=== PATIENT | male | born 1960 | race Hispanic/Latino ===

== ENCOUNTER → 2018-01-25 | Outpatient (CLI) | payer OTHER | LOC: M RAD 08:57 | DX: K40.90 Unilateral inguinal hernia, without obstruction or gangrene, not specified as recurrent (principal) ==

== ENCOUNTER → 2018-02-26 | Outpatient (CLI) | payer OTHER ==
[2018-02-26 12:19] LABS: HEMATOCRIT 42.9 % (42.0-52.0); HEMOGLOBIN 15.4 g/dl (13.5-17.5); MEAN CORPUSCULAR HEMOGLOBIN 31.8 pg (27.0-33.0); MEAN CORPUSCULAR HGB CONC 35.9 g/dl (32.0-36.5); MEAN CORPUSCULAR VOLUME 88.6 fl (80.0-96.0); PLATELET COUNT, AUTOMATED 191 10^3/uL (150-450); RED BLOOD COUNT 4.84 10^6/uL (4.30-6.10); RED CELL DISTRIBUTION WIDTH 12.1 % (11.5-14.5); WHITE BLOOD COUNT 4.5 10^3/uL (4.0-10.0)
== END ==
LOC: M LAB 11:49
DX: Z01.818 Encounter for other preprocedural examination (principal); Z87.09 Personal history of other diseases of the respiratory system
CPT/HCPCS: 93005

== ENCOUNTER 2018-03-01 05:46 | Day surgery (SDC) | payer OTHER ==
[2018-03-01] MEDS ORDERED: LR 1,000 ML IV ×4 (06:00→09:30)
[2018-03-01] MEDS: BUPIVACAINE/EPIN 0.25% 30 ML VIAL As Ordered ×2 (07:17)
[2018-03-01] MEDS ORDERED: dexameTHASONE 4 MG/ML 1ML VIAL (J1100) As Ordered ×4 (07:19)
[2018-03-01] MEDS ORDERED: ROCURONIUM BROMIDE 50 MG/5 ML VIAL As Ordered ×4 (07:19→07:59)
[2018-03-01] MEDS ORDERED: MIDAZOLAM INJ 2 MG/2 ML VIAL (J2250) As Ordered ×2 (07:19)
[2018-03-01] MEDS ORDERED: LIDOCAINE 2% INJ 100 MG/5 ML SDV (FOR ANES.) As Ordered ×2 (07:19)
[2018-03-01] MEDS ORDERED: PROPOFOL 200 MG/20 ML VIAL As Ordered ×2 (07:19)
[2018-03-01] MEDS ORDERED: fentaNYL 100 MCG/2 ML INJECTION (J3010) As Ordered ×4 (07:19→07:59)
[2018-03-01] MEDS ORDERED: METOCLOPRAMIDE INJ 10MG/2ML VIAL (J2765) As Ordered ×2 (08:08)
[2018-03-01] MEDS ORDERED: ONDANSETRON 4MG/2ML VIAL (J2405) As Ordered ×2 (08:46)
[2018-03-01] MEDS ORDERED: NEOSTIGMINE 10 MG/10 ML VIAL (J2710) As Ordered ×2 (08:46)
[2018-03-01] MEDS ORDERED: GLYCOPYRROLATE INJ 0.2 MG/ML 2 ML VIAL As Ordered ×2 (08:46)
[2018-03-01] MEDS ORDERED: KETOROLAC 60 MG/2 ML VIAL (J1885) As Ordered ×2 (08:55)
[2018-03-01] MEDS: PERCOCET 5MG/325MG TAB PO ×4 (09:25→10:23)
[2018-03-01] MEDS ORDERED: NORCO, ANEXSIA 5/325MG TABLET (HYDROcodone/ACETAMINOPHEN) PO ×2 (09:30)
[2018-03-01] MEDS ORDERED: METOCLOPRAMIDE INJ 10MG/2ML VIAL (J2765) IV ×2 (09:30)
[2018-03-01] MEDS ORDERED: ONDANSETRON 4MG/2ML VIAL (J2405) IV ×2 (09:30)
[2018-03-01] MEDS ORDERED: fentaNYL 100 MCG/2 ML INJECTION (J3010) IV ×2 (09:30)
== END 2018-03-01 11:31 | disposition home or self-care (01) ==
LOC: M SDC 05:46
DX: K40.90 Unilateral inguinal hernia, without obstruction or gangrene, not specified as recurrent (principal)
CPT/HCPCS: 49650

== ENCOUNTER → 2018-03-12 | Outpatient (REF) | payer OTHER ==
[2018-03-12 11:02] LABS: ALBUMIN 3.8 GM/DL (3.2-5.2); ALBUMIN/GLOBULIN RATIO 1.19 (1.00-1.93); ALKALINE PHOSPHATASE 50 U/L (45-117); ALT/SGPT 30 U/L (12-78); ANION GAP 9 MEQ/L (8-16); AST/SGOT 14 U/L (7-37); BILIRUBIN,TOTAL 1.3 MG/DL (0.2-1.0); BLOOD UREA NITROGEN 12 MG/DL (7-18); CALCIUM LEVEL 8.4 MG/DL (8.5-10.1); CARBON DIOXIDE LEVEL 26 MEQ/L (21-32); CHLORIDE LEVEL 109 MEQ/L (98-107); CHOLESTEROL LEVEL 173 MG/DL (<200); CHOLESTEROL RISK RATIO 3.844 (<5); CREATININE FOR GFR 1.03 MG/DL (0.70-1.30); FREE T4 0.98 NG/DL (0.76-1.46); GLOMERULAR FILTRATION RATE > 60.0 (>56); GLUCOSE, FASTING 100 MG/DL (70-100); HDL CHOLESTEROL 45 MG/DL (>40); LDL CHOLESTEROL 110.6 MG/DL (<100); NON-HDL-C 128 MG/DL; POTASSIUM SERUM 3.8 MEQ/L (3.5-5.1); PSA SCREENING 2.37 NG/ML (< 4.0); SODIUM LEVEL 144 MEQ/L (136-145); TRIGLYCERIDES LEVEL 87 MG/DL (<150)
[2018-03-12 11:13] LABS: TOTAL 25(OH) VITAMIN D 44.2 NG/ML (30.0-100.0)
[2018-03-12 11:42] LABS: ESTIMATED AVERAGE GLUCOSE 97 MG/DL (60-110)
== END ==
LOC: M SFHCPLAZ 08:23
DX: R03.0 Elevated blood-pressure reading, without diagnosis of hypertension (principal); Z83.3 Family history of diabetes mellitus; Z13.220 Encounter for screening for lipoid disorders; Z12.5 Encounter for screening for malignant neoplasm of prostate; E55.9 Vitamin D deficiency, unspecified

== ENCOUNTER 2020-12-11 12:07 | Emergency (ER) | payer OTHER ==
[~2020-12-11] VITALS: Ht 177.8 cm; Wt 86.7 kg
[2020-12-11] MEDS ORDERED: ACET1TAB55 PO (12:15)
[2020-12-11] MEDS ORDERED: ACETAMINOPHEN TAB 650MG DOSE (2X325MG) PO PRN (13:00)
--- NOTE | 2020-12-11 13:26 | REP ---
INDICATION: Coronavirus workup. COMPARISON: 03/02/2012 PA and lateral views TECHNIQUE: Portable FINDINGS: The technique utilized in obtaining the radiograph has magnified the cardiac silhouette and accentuated the interstitial markings. The superior mediastinal structures are midline. The cardiac silhouette is unremarkable in size, shape, and position. The diaphragmatic surfaces of the lungs are regular, and the costophrenic angles are clear. The pulmonary arias are clear. The imaged osseous structures are intact. IMPRESSION: There is no acute cardiopulmonary disease. There has been no significant change compared to the prior exam. <Electronically signed by Andrew Eng > 12/11/20 [id number]
[2020-12-11 13:39] LABS: BASO % 0.3 % (0.0-1.0); EOS % 0.3 % (0.0-3.0); HEMATOCRIT 46.5 % (42.0-52.0); HEMOGLOBIN 15.9 g/dl (13.5-17.5); LYMPH # 0.6 10^3/uL (1.5-5.0); LYMPH % 18.4 % (24.0-44.0); MEAN CORPUSCULAR HEMOGLOBIN 30.9 pg (27.0-33.0); MEAN CORPUSCULAR HGB CONC 34.2 g/dl (32.0-36.5); MEAN CORPUSCULAR VOLUME 90.5 fl (80.0-96.0); MONO # 0.5 10^3/uL (0.0-0.8); MONO % 14.2 % (2.0-8.0); NEUTROPHILS # 2.2 10^3/uL (1.5-8.5); NEUTROPHILS % 66.2 % (36.0-66.0); PLATELET COUNT, AUTOMATED 155 10^3/uL (150-450); RED BLOOD COUNT 5.14 10^6/uL (4.30-6.10); WHITE BLOOD COUNT 3.3 10^3/uL (4.0-10.0)
[2020-12-11 14:07] LABS: ALBUMIN 3.9 GM/DL (3.2-5.2); ALT/SGPT 40 U/L (12-78); BILIRUBIN,TOTAL 0.8 MG/DL (0.2-1.0); BLOOD UREA NITROGEN 10 MG/DL (7-18); C REACTIVE PROTEIN QUANTITATIV 1.83 MG/DL (0.00-0.30); CALCIUM LEVEL 8.8 MG/DL (8.5-10.1); CARBON DIOXIDE LEVEL 30 MEQ/L (21-32); CHLORIDE LEVEL 105 MEQ/L (98-107); CK-MB VALUE MASS < 1.0 NG/ML (<3.6); CPK CREATINE PHOSPHOKINASE 72 U/L (39-308); GLOMERULAR FILTRATION RATE > 60.0 (>56); GLUCOSE, FASTING 95 MG/DL (70-100); MB/CK RELATIVE INDEX 1.39 (< OR =4); POTASSIUM SERUM 4.2 MEQ/L (3.5-5.1); SODIUM LEVEL 137 MEQ/L (136-145); TOTAL PROTEIN 7.2 GM/DL (6.4-8.2); TROPONIN I < 0.02 NG/ML (< 0.10)
[2020-12-11] MEDS ORDERED: ISOVUE-370 76% 100ML VIAL As Ordered ONE (15:16)
--- NOTE | 2020-12-11 16:05 | REP ---
INDICATION: covid +, elev d-dimer, eval for PE/covid pneumonia (cxr neg). COMPARISON: Radiograph today. TECHNIQUE: CT angiogram chest performed following the intravenous administration of 100 cc of Isovue 370. Sagittal and coronal reconstruction images are performed. FINDINGS: Lungs: There are relatively mild diffuse bilateral patchy alveolar opacities with mixed interstitial opacities. These are predominantly peripherally located in the upper lobes. These likely represent COVID pneumonic infiltrates. In addition, there is a 4 mm nodular density in the right upper lobe on image 34, another in the right middle lobe on image 56 and another in the left upper lobe on image 34. Mediastinum: No adenopathy. Pulmonary arteries: No evidence of pulmonary embolism. Rhiannon: No adenopathy. Axilla: No adenopathy. Pleura: No effusion. Heart: Not enlarged. Thoracic aorta: No aneurysm or dissection. Upper abdominal structures: Unremarkable. Visualized osseous structures: There are mild degenerative changes of the spine without compression deformity. IMPRESSION: No CT evidence of pulmonary embolism. Mild diffuse patchy peripheral infiltrates as discussed above compatible with COVID pneumonic infiltrates. Two nodular densities in the right lung and 1 in the left lung all measuring 4 mm in diameter are of doubtful significance. <Electronically signed by Carlitos Garcia > 12/11/20 [id number]
[2020-12-11 17:25] VITALS: BP 108/72
--- NOTE | 2020-12-14 09:36 | ED PDOC ---
Post-Departure Follow-Up cta chest faxed to dr valverde for fu Ana Peters MD December 14, 2020 09:36
== END 2020-12-11 17:33 | disposition home or self-care (01) ==
LOC: M ED 12:07
DX: U07.1 COVID-19 (principal); R05 Cough; R50.9 Fever, unspecified; R91.8 Other nonspecific abnormal finding of lung field
CPT/HCPCS: 36415; 71045; 71275; 80053; 82550; 82553; 83605; 84145; 84484; 85025; 85379; 86140; 87040; 99284; Q9967

== ENCOUNTER → 2022-03-06 | Outpatient (CLI) | payer OTHER, SELFPAY ==
[~2022-03-06] MED LIST: ACET1TAB55 PO
== END ==
LOC: M WUC 09:52
PROVIDERS: ATTEND Family Medicine Adult Medicine
DX: R76.11 Nonspecific reaction to tuberculin skin test without active tuberculosis (principal)